=== PATIENT | female | born 1955 | race Two or more races ===

== ENCOUNTER 2024-05-31 08:06 | Emergency (ER) | payer OTHER ==
[~2024-05-31] VITALS: Ht 160 cm; Wt 73.5 kg
[2024-05-31] MEDS ORDERED: INVOKANA100 MG (08:51)
[2024-05-31] MEDS ORDERED: GLUMETZA1000 MG (08:51)
[2024-05-31] MEDS ORDERED: LIPO-FLAVONOID1 EACH (08:51)
[2024-05-31] MEDS ORDERED: PRILOSEC OTC20 MG (08:52)
[2024-05-31] MEDS ORDERED: ZESTRIL10 M1 (08:54)
[2024-05-31] MEDS ORDERED: LANTUS SOL100 UNIT/1 SQ (08:55)
[2024-05-31] MEDS ORDERED: GLYBURIDE MICRON6 MG PO (08:56)
[2024-05-31] MEDS ORDERED: BARIUM SULFATE 450 ML ORAL.SUSP PO ONE (09:08)
[2024-05-31 09:31] LABS: HEMOGLOBIN 10.8 g/dL (12.0-15.00); MEAN CELL VOLUME 100.2 fL (80.00-100.00); MEAN CORPUSCULAR HEMOGLOBIN 32.7 pg (27.00-32.0); MEAN CORPUSCULAR HGB CONC 32.6 g/dl (32.0-36.0); PLATELET COUNT 162 K/uL (150-450); RED CELL DISTRIBUTION WIDTH 16.2 % (11.5-14.5)
[2024-05-31 10:14] LABS: CALCIUM 9.7 mg/dL (8.5-10.1); CREATININE SERUM 1.27 mg/dL (0.55-1.02); GFR 41.6; POTASSIUM 5.06 mEq/L (3.5-5.1)
[2024-05-31 10:16] LABS: URINE APPEARANCE Clear; URINE BILIRRUBIN Negative (NEGATIVE); URINE BLOOD Negative; URINE COLOR Yellow; URINE KETONE Negative (NEGATIVE); URINE LEUKOCYTE Trace; URINE NITRATE Negative; URINE PROTEIN Negative (NEGATIVE); URINE UROBILINOGEN 0.2 E.U./dl
[2024-05-31 10:18] LABS: URINE BACTERIA 351.5 uL (0.0-1933); URINE EPITHELIAL CELLS 21.9 uL (0.0-38.8); URINE WBC 47.1 uL (0.0-23.2)
[2024-05-31 10:19] LABS: URINE GLUCOSE >=1000 MG/DL (NEGATIVE); URINE RBC 0.1 uL (0.0-20.8)
[2024-05-31] MEDS ORDERED: CIPROFLOXACIN IN 5 % DEXTROSE 400 MG/200 ML PIGGYBAG IV ONE ×2 (13:00→13:05)
[2024-05-31] MEDS ORDERED: METRONIDAZOLE/SODIUM CHLORIDE 500 MG/100 ML PIGGYBACK IV ONE ×2 (13:00→13:05)
== END 2024-05-31 14:38 | disposition home or self-care (01) ==
LOC: ER 08:08
PROVIDERS: Emergency Medicine
DX: K57.92 Diverticulitis of intestine, part unspecified, without perforation or abscess without bleeding (principal); R10.9 Unspecified abdominal pain; E11.9 Type 2 diabetes mellitus without complications; Z79.84 Long term (current) use of oral hypoglycemic drugs; Z91.013 Allergy to seafood
CPT/HCPCS: 36415; 74177; Q9965